=== PATIENT | male | born 1955 | race Two or more races ===

== ENCOUNTER 2017-02-03 00:12 | Emergency (ER) | payer OTHER ==
[2017-02-03 01:02] LABS: BASOPHILS % (AUTO) 1 % (0-3); EOSINOPHILS % (AUTO) 2 % (0-9); HEMATOCRIT 39 % (39-53); MEAN CORPUSCULAR HGB CONC 31.1 gm/dl (32.0-36.0); MONOCYTES % (AUTO) 3.6 % (0-12)
[2017-02-03 01:05] VITALS: BP 117/78; PULSE 79; RESP 24; TEMP 98.3; O2SAT 100
[2017-02-03 01:07] LABS: CALCIUM 8.5 mg/dl (8.5-10.1); POTASSIUM 3.3 mMol/L (3.5-5.1)
[2017-02-03 01:13] LABS: ANISOCYTOSIS SLIGHT AMT; MEAN CORPUSCULAR VOLUME 67 fL (80-100)
[2017-02-03 01:14] LABS: TARGET CELLS PRESENT
[2017-02-03] MEDS ORDERED: POTASSIUM CHLORIDE 10 MEQ TER PO ONE (01:30)
[2017-02-03] MEDS ORDERED: POTASSIUM CHLORIDE 10 MEQ TER ONE (01:37)
== END 2017-02-03 01:48 | disposition home or self-care (01) | DRG 312 ==
LOC: ED 00:12
DX: R55 Syncope and collapse (principal); E87.6 Hypokalemia
CPT/HCPCS: 36415; 80048; 85025; 93005; 99284